=== PATIENT | female | born 1975 | race African-American/Black ===

== ENCOUNTER 2024-06-02 18:41 | Inpatient (IN) | payer SELFPAY ==
[~2024-06-02] VITALS: Ht 162.6 cm; Wt 195.0 kg
[2024-06-02 21:56] LABS: CHLORIDE 105 mEq/L (98-107); POTASSIUM 4.3 mEq/L (3.5-5.1); SODIUM 141 mEq/L (136-145)
[2024-06-02 21:57] LABS: BASOPHILS % 1.3 % (0.0-2.0); CALCIUM 9.3 mg/dL (8.7-10.4); CARBON DIOXIDE 27 mEq/L (21-32); EOSINOPHILS % 2.3 % (0.0-5.0); HEMATOCRIT. 39.2 % (36.0-48.0); HEMOGLOBIN. 13.1 g/dL (12.0-16.0); LYMPHOCYTES % 40.8 % (20.0-50.0); MEAN CORPUSCULAR HEMOGLOBIN 30.6 pg (28.0-32.0); MEAN CORPUSCULAR HGB CONC 33.3 g/dL (31.0-37.0); MEAN CORPUSCULAR VOLUME 91.9 fL (81.0-99.0); MEAN PLATELET VOLUME 9.9 fl (7.4-10.4); MONOCYTES % 7.8 % (2.0-8.0); NEUTROPHILS % 47.8 % (40.0-76.0); PLATELET 272 x1000/uL (130-400); RED BLOOD CELL COUNT 4.27 mill/uL (4.2-5.4); RED CELL DISTRIBUTION WIDTH 14.7 % (11.6-14.6); WHITE BLOOD COUNT 11.6 x1000/uL (4.5-11.0)
[2024-06-02 21:58] LABS: DIFFERENTIAL COMMENT 1
[2024-06-02 22:02] LABS: CREATININE 0.7 mg/dL (0.6-1.0); GLUCOSE 120 mg/dL (70-105); UREA NITROGEN BLOOD 18 mg/dL (9-23)
[2024-06-02 22:06] LABS: HCG SCREEN NEGATIVE
[2024-06-02 22:09] LABS: TROPONIN I HIGH SENSITIVITY < 4 ng/L (3.0-34)
[2024-06-02] MEDS ORDERED: GUAIFENESIN 200MG/10ML SUGAR FREE UDC PO PRN (22:15)
[2024-06-02] MEDS ORDERED: ACETAMINOPHEN 325MG TABLET PO PRN (22:15)
[2024-06-02] MEDS ORDERED: MAGNESIUM/ALUMINUM HYDROXIDE/SIMETHICONE 30ML UDC PO PRN (22:15)
[2024-06-02] MEDS ORDERED: LORAZEPAM 0.5MG TABLET PO PRN (22:15)
[2024-06-02] MEDS ORDERED: ONDANSETRON HCL 4MG/2ML INJ IV PRN (22:15)
[2024-06-02] MEDS ORDERED: IPRATROPIUM/ALBUTEROL 0.5-3(2.5)MG/3ML NEB HHN PRN (22:15)
[2024-06-02 22:25] VITALS: BP 149/78; PULSE 79; RESP 20; TEMP 36.7
[2024-06-02] MEDS: LEVETIRACETAM 500MG/5ML CUP PO SCH (22:45)
[2024-06-02] MEDS: SERTRALINE HCL 25MG TABLET PO SCH (22:45)
[2024-06-02 23:02] LABS: D-DIMER 0.26 mg/L FEU (<0.50); PROTHROMBIN TIME 10.3 sec (9.6-11.0)
[2024-06-02] MEDS: LOSARTAN 50 MG TABLET PO SCH (23:24)
[2024-06-03 02:44] LABS: PHOSPHORUS 2.4 mg/dL (2.5-4.9)
[2024-06-03 04:00] VITALS: BP 151/80; PULSE 85; RESP 20; TEMP 37.2; O2SAT 94
[2024-06-03] MEDS: HYDROCODONE/ACETAMINOPHEN 5/325MG TABLET PO PRN (04:26)
[2024-06-03 08:21] VITALS: BP 150/85; PULSE 77; RESP 20; TEMP 36.7; O2SAT 95
[2024-06-03 08:52] LABS: CHLORIDE 104 mEq/L (98-107); POTASSIUM 3.8 mEq/L (3.5-5.1); SODIUM 141 mEq/L (136-145)
[2024-06-03 08:53] LABS: CALCIUM 9.1 mg/dL (8.7-10.4); CARBON DIOXIDE 29 mEq/L (21-32)
[2024-06-03 08:54] LABS: BASOPHILS % 0.6 % (0.0-2.0); EOSINOPHILS % 2.1 % (0.0-5.0); HEMATOCRIT. 38.7 % (36.0-48.0); HEMOGLOBIN. 12.8 g/dL (12.0-16.0); LYMPHOCYTES % 41.7 % (20.0-50.0); MEAN CORPUSCULAR HEMOGLOBIN 30.1 pg (28.0-32.0); MEAN CORPUSCULAR VOLUME 91.3 fL (81.0-99.0); MEAN PLATELET VOLUME 10.1 fl (7.4-10.4); MONOCYTES % 7.8 % (2.0-8.0); NEUTROPHILS % 47.8 % (40.0-76.0); PLATELET 300 x1000/uL (130-400); RED BLOOD CELL COUNT 4.24 mill/uL (4.2-5.4); RED CELL DISTRIBUTION WIDTH 14.9 % (11.6-14.6); WHITE BLOOD COUNT 8.4 x1000/uL (4.5-11.0)
[2024-06-03 08:57] LABS: TRIGLYCERIDE 176 mg/dL (0-150)
[2024-06-03 08:58] LABS: CREATININE 0.5 mg/dL (0.6-1.0); GLUCOSE 108 mg/dL (70-105); UREA NITROGEN BLOOD 14 mg/dL (9-23)
[2024-06-03 08:59] LABS: LDL CHOLESTEROL 126 mg/dL (5-100)
[2024-06-03 09:00] LABS: ALANINE AMINOTRANSFERASE 14 IU/L (10-49); ALBUMIN 3.9 g/dL (3.2-4.8); ASPARTATE AMINOTRANSFERASE 15 IU/L (<34); BILIRUBIN TOTAL 0.3 mg/dL (0.1-1.0); CHOLESTEROL 193 mg/dL (<200); HDL CHOLESTEROL 38 mg/dL (>65); PROTEIN TOTAL 6.7 g/dL (6.0-8.3)
[2024-06-03] MEDS: IBUPROFEN 200MG TABLET PO SCH (09:00)
[2024-06-03 09:01] LABS: T4 FREE 1.29 ng/dL (0.89-1.76); THYROID STIMULATING HORMONE 1.63 uIU/mL (0.55-4.78)
[2024-06-03] MEDS: AMLODIPINE 10MG TABLET PO SCH (09:15)
[2024-06-03] MEDS: ENOXAPARIN 30MG/0.3ML SYR SUBCUT SCH (09:16)
[2024-06-03 09:18] LABS: HEPATITIS B SURFACE ANTIGEN NEGATIVE (Negative)
[2024-06-03 09:24] LABS: BILIRUBIN DIRECT < 0.1 mg/dL (<=3.0)
[2024-06-03 09:39] LABS: HEPATITIS C AB NON REACTIVE (Neg) (Negative)
[2024-06-03 12:05] VITALS: BP 119/67; PULSE 80; RESP 20; TEMP 37; O2SAT 96
[2024-06-03] MEDS: SODIUM PHOSPHATE 15 MMOL in DEXT 5% WATER 245 ML IV NR (12:17)
[2024-06-03 16:25] VITALS: BP 123/69; PULSE 87; RESP 20; TEMP 36.8; O2SAT 96
[2024-06-03] MEDS: ATORVASTATIN CALCIUM 40MG TABLET PO SCH (21:00)
[2024-06-03] MEDS: FAMOTIDINE 20MG TABLET PO SCH (21:00)
[2024-06-03 23:02] VITALS: RESP 20
[2024-06-04 01:45] VITALS: RESP 17
[2024-06-04 03:30] VITALS: RESP 21
[2024-06-04 04:40] VITALS: BP 185/74; PULSE 84
[2024-06-04 04:59] VITALS: RESP 18
[2024-06-04] MEDS: CLONIDINE 0.1MG TABLET PO PRN (05:19)
[2024-06-04] MEDS: ACETAMINOPHEN 325MG TABLET PO PRN (14:44)
[2024-06-05] MEDS ORDERED: FURO20TA4 MT (14:07)
[2024-06-05] MEDS ORDERED: CARV25TA47 MT (14:07)
[2024-06-05] MEDS ORDERED: KEPP500 MT (14:08)
[2024-06-05] MEDS ORDERED: ASPI-1497 MT (14:10)
[2024-06-05] MEDS ORDERED: POLY15DR40 EACHEYE (14:11)
[2024-06-05] MEDS ORDERED: NYST15PO13 TP (14:12)
[2024-06-05] MEDS ORDERED: OLOP2.5D12 EACHEYE (14:12)
[2024-06-05] MEDS ORDERED: *PATIENT'S OWN MEDICATION STORAGE XX SCH (17:15)
[2024-06-05] MEDS ORDERED: POLYVINYL ALCOHOL OPHTH DROPS 15ML EACHEYE PRN (18:30)
[2024-06-05 20:00] VITALS: BP 125/64; PULSE 61; RESP 17; TEMP 36.4; O2SAT 97
[2024-06-05] MEDS: ENOXAPARIN 40MG/0.4ML SYR SUBCUT SCH (21:00)
[2024-06-05] MEDS: MELATONIN 3MG TABLET PO SCH (21:00)
[2024-06-05 21:22] VITALS: RESP 20
[2024-06-06 08:00] VITALS: BP 159/76; PULSE 77; RESP 20; TEMP 36.4; O2SAT 97
[2024-06-06] MEDS: FUROSEMIDE 20MG TABLET PO SCH (09:15)
[2024-06-06] MEDS: ASPIRIN 81MG EC TABLET PO SCH (09:52)
[2024-06-06 12:00] VITALS: BP 167/101; PULSE 81; RESP 21; TEMP 36.1; O2SAT 97
[2024-06-06 16:00] VITALS: BP 176/87; PULSE 94; RESP 21; TEMP 36.6; O2SAT 98
[2024-06-06] MEDS: CARVEDILOL 12.5MG TABLET PO SCH (21:00)
[2024-06-06] MEDS: NYSTATIN 100,000 UNITS/GM OINT 15GM TOP SCH (21:00)
[2024-06-06 21:44] VITALS: RESP 22
[2024-06-07] MEDS: FLUOXETINE HCL 10 MG CAPSULE PO SCH (08:56)
[2024-06-07] MEDS ORDERED: LEVETIRACETAM 500MG PREMIX 100ML IV SCH (09:30)
[2024-06-07] MEDS ORDERED: LEVETIRACETAM 500MG in NACL 100ML PREMIX IV SCH (09:30)
[2024-06-07] MEDS ORDERED: LORAZEPAM 2MG/ML INJ IM SCH (09:30)
[2024-06-07] MEDS ORDERED: LORAZEPAM 2MG/ML INJ IV PRN (09:30)
[2024-06-07] MEDS: LEVETIRACETAM 500MG/5ML CUP PO SCH ×2 (10:56→21:04)
[2024-06-07 16:00] VITALS: PULSE 81; TEMP 36.4
[2024-06-07 21:51] VITALS: BP 152/78; PULSE 80; RESP 20; TEMP 36.6; O2SAT 97
[2024-06-07 23:50] VITALS: RESP 21
[2024-06-08] VITALS: BP 122/57; PULSE 70; RESP 20; TEMP 36.5; O2SAT 97
[2024-06-08 02:03] VITALS: RESP 22
[2024-06-08 04:30] VITALS: RESP 20
[2024-06-08] MEDS ORDERED: KEPP500 PO (14:22)
[2024-06-08 20:00] VITALS: BP 152/64; PULSE 78; RESP 18; TEMP 36.4; O2SAT 96
[2024-06-08 21:52] VITALS: RESP 24
[2024-06-09] VITALS (9 sets, daily range): BP systolic 135–145; BP diastolic 73–86; PULSE 66–78; RESP 16–20; TEMP 36–36.4; O2SAT 96–99
[2024-06-09] MEDS: KETOROLAC 15MG/ML VIAL IV NR (20:45)
[2024-06-10] VITALS: BP 124/67; PULSE 70; RESP 20; TEMP 36.5; O2SAT 70
[2024-06-10 04:00] VITALS: BP 126/66; PULSE 71; RESP 19; TEMP 36.7; O2SAT 71
[2024-06-10 04:55] VITALS: RESP 16
[2024-06-10 12:00] VITALS: BP 148/79; PULSE 101; RESP 18; TEMP 36.4; O2SAT 97
[2024-06-10 16:00] VITALS: BP 160/81; PULSE 107; RESP 17; TEMP 36.4; O2SAT 96
[2024-06-10 20:47] VITALS: RESP 17
[2024-06-11 00:51] VITALS: RESP 14
[2024-06-11 10:29] VITALS: BP 154/78; PULSE 72; TEMP 97.5; O2SAT 98
== END 2024-06-11 11:00 | disposition home or self-care (01) | DRG 203 ==
LOC: ER 18:41 → EDBEDREQ 21:00 → EDBEDREQTM 21:00 → 7WST 22:28 → 6EST 06-04 10:35 → 7WST 06-07 11:29 → 6WST 06-07 16:36
PROVIDERS: ADMIT Internal Medicine; ATTEND Internal Medicine
PROC: GZ56ZZZ Individual Psychotherapy, Supportive (ICD-10-PCS; 2024-06-08)
PROC: 5A09357 Assistance with Respiratory Ventilation, Less than 24 Consecutive Hours, Continuous Positive Airway Pressure (ICD-10-PCS; 2024-06-08)
PROC: 4A00X4Z Measurement of Central Nervous Electrical Activity, External Approach (ICD-10-PCS; principal; 2024-06-09)
PROC: 5A09357 Assistance with Respiratory Ventilation, Less than 24 Consecutive Hours, Continuous Positive Airway Pressure (ICD-10-PCS; 2024-06-09)
PROC: 5A09357 Assistance with Respiratory Ventilation, Less than 24 Consecutive Hours, Continuous Positive Airway Pressure (ICD-10-PCS; 2024-06-10)
PROC: 5A09357 Assistance with Respiratory Ventilation, Less than 24 Consecutive Hours, Continuous Positive Airway Pressure (ICD-10-PCS; 2024-06-11)
DX: R07.89 Other chest pain (principal); R45.851 Suicidal ideations; E66.2 Morbid (severe) obesity with alveolar hypoventilation; Z68.45 Body mass index [BMI] 70 or greater, adult; D72.829 Elevated white blood cell count, unspecified; E11.9 Type 2 diabetes mellitus without complications; F10.129 Alcohol abuse with intoxication, unspecified; G56.00 Carpal tunnel syndrome, unspecified upper limb; I10 Essential (primary) hypertension; F43.10 Post-traumatic stress disorder, unspecified; G40.909 Epilepsy, unspecified, not intractable, without status epilepticus; E78.5 Hyperlipidemia, unspecified; Y90.9 Presence of alcohol in blood, level not specified; F32.9 Major depressive disorder, single episode, unspecified; Z91.410 Personal history of adult physical and sexual abuse; Z59.01 Sheltered homelessness; Z63.4 Disappearance and death of family member; Z79.899 Other long term (current) drug therapy; Z91.51 Personal history of suicidal behavior; Z99.3 Dependence on wheelchair
CPT/HCPCS: 36415; 80048; 80061; 80076; 82962; 83036; 83735; 83880; 84100; 84439; 84443; 84484; 84703; 85025; 85379; 86705; 87340; 93005; 93306; 94070; 94660; 94664; 94760; 95816; 97166; 98960; 99291; A4606; C1893; J1650; J1885; J2060; J3490; J7060